=== PATIENT | male | born 1960 | race African-American/Black ===

== ENCOUNTER 2017-01-14 16:37 | Emergency (ER) | payer BC, OTHER ==
[~2017-01-14] VITALS: Ht 172.7 cm; Wt 99.0 kg
[2017-01-14] MEDS ORDERED: HTN PO (16:53)
[2017-01-14 17:33] LABS: APPEARANCE,URINE CLOUDY (CLEAR); GLUCOSE, URINE (UA) NEGATIVE (NEGATIVE); KETONES,URINE NEGATIVE (NEGATIVE); LEUKOCYTE ESTERASE ,URINE MODERATE (NEGATIVE); OCCULT BLOOD,URINE MODERATE (NEGATIVE); PROTEIN,URINE POS 1+ (NEGATIVE)
[2017-01-14 17:34] LABS: SQUAMOUS EPITHELIAL CELL,UR Few /LPF (None Seen); WBC,URINE 51-100 /HPF (0-5)
[2017-01-14] MEDS ORDERED: AZITHROMYCIN 250 MG TABLET PO ONE (18:00)
[2017-01-14] MEDS ORDERED: LIDOCAINE HCL/PF 1% 2 ML VIAL IM ONE (18:00)
[2017-01-14] MEDS ORDERED: CefTRIAXone SODIUM 1 GM/VIAL IM ONE (18:00)
[2017-01-14 18:17] VITALS: BP 135/76
[2017-01-17 08:09] LABS: GC DNA N.A. AMPLIFY Positive (Negative)
== END 2017-01-14 18:39 | disposition home or self-care (01) ==
LOC: EMS 16:41
DX: R30.0 Dysuria (principal); A64 Unspecified sexually transmitted disease; I10 Essential (primary) hypertension
CPT/HCPCS: 81001; 87086; 87491; 87591; 96372; 99284; J0696; J3490